=== PATIENT | female | born 1975 | race Caucasian/White ===

== ENCOUNTER 2025-07-08 11:46 | Emergency (ER) | payer OTHER, MEDICAID ==
[~2025-07-08] VITALS: Ht 165.1 cm; Wt 109.0 kg
--- NOTE | 2025-07-08 12:10 | ED.PDOC ---
HPI (NEURO) HPI Comments 49 y/o F, KARLI, presents to the ED for CC of dizziness. EMS reports, patient is coming from a store where caregiver called d/t patient c/o of sudden onset dizziness. Upon arrival to the ED, patient reports feeling as if the room is spinning. Patient denies nausea, vomiting, headache, or photophobia. Chief Complaint: Dizziness Time Seen by MD: 12:00 Reviewed Notes: Nurses Notes, Medications, Allergies Information Source: Patient, Emergency Med Personnel Mode of Arrival: EMS Severity: Moderate Headache Severity: None Timing: Minutes Duration: Since onset Prehospital treatment: None Onset: At rest Circumstances: Spontaneous Symptoms: Vertigo History of: None Modifying factors: Nothing Associated Signs and Symptoms: None Past Medical History PAST MEDICAL HISTORY: Denies Surgical History: Denies all surgeries [employer] History: Denies all [employer] Hx Family History Family History: Unknown Social History Smoker: Non-Smoker Alcohol: Denies ETOH Use Drugs: Denies Drug Use Lives In: Home Constitutional: denies: chills, diaphoresis, fatigue, fever, malaise, sweats, weakness, others EENTM: denies: blurred vision, double vision, ear bleeding, ear discharge, ear drainage, ear pain, ear ringing, eye pain, eye redness, hearing loss, mouth pain, mouth swelling, nasal discharge, nose bleeding, nose congestion, nose pain, photophobia, tearing, throat pain, throat swelling, voice changes, others Respiratory: denies: cough, hemoptysis, orthopnea, SOB at rest, shortness of breath, SOB with excertion, stridor, wheezing, others Cardiovascular: denies: chest pain, dizzy spells, diaphoresis, Dyspnea on exertion, edema, irregular heart beat, left arm pain, lightheadedness, palpitations, PND, syncope, others Gastrointestinal: denies: abdomen distended, abdominal pain, blood streaked bowels, constipated, diarrhea, dysphagia, difficulty swallowing, hematemesis, melena, nausea, poor appetite, poor fluid intake, rectal bleeding, rectal pain, vomiting, others Genitourinary: denies: abnormal vagina bleeding, burning, dyspareunia, dysuria, flank pain, frequency, hematuria, incontinence, pain, , vagina discharge, urgency, others Neurological: reports: dizziness; denies: fainting, headache, left sided numbness, left sided weakness, numbness, paresthesia, pre-existing deficit, right sided numbness, right sided weakness, seizure, speech problems, tingling, tremors, weakness, others Musculoskeletal: denies: back pain, gout, joint pain, joint swelling, muscle pain, muscle stiffness, neck pain, others Integumetry: denies: bruises, change in color, change in hair/nails, dryness, laceration, lesions, lumps, rash, wounds, others Allergic/Immunocompromised: denies: Difficulty Healing, Frequent Infections, Hives, Itching, others Hematologic/Lymphatic: denies: anemia, blood clots, easy bleeding, easy bruising, swollen glands, others Endocrine: denies: excessive hunger, excessive sweating, excessive thirst, excessive urination, flushing, intolerance to cold, intolerance to heat, unexplained weight gain, unexplained weight loss, others Psychiatric: denies: anxiety, bipolar disorder, depression, hopeless, panic disorder, schizophrenia, sleepless, suicidal, others All Other Systems: Reviewed and Negative Physical Exam General Appearance: No Apparent Distress, Normal HEENT: Normal ENT Inspection, Pharynx Normal Neck: Full Range of Motion, Non-Tender, Normal, Normal Inspection Respiratory: Chest Non-Tender, Lungs Clear, No Accessory Muscle Use, No Respiratory Distress, Normal Breath Sounds Cardiovascular: No Edema, No Murmur, No Gallop, Normal Peripheral Pulses, Regular Rate/Rhythm Breast Exam: Deferred Gastrointestinal: No Organomegaly, Non Tender, No Pulsatile Mass, Normal Bowel Sounds, Soft Genitalia: Deferred Pelvic: Deferred Rectal: Deferred Extremities: No calf tenderness, Normal capillary refill, Normal inspection, Normal range of motion, Non-tender, No pedal edema Musculoskeletal : Apperance: Normal Neurologic: Alert, 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 Was a procedure done?: No Differential Diagnosis (SZ) Seizure: N/A General Weakness: Vertigo: central, Vertigo: peripheral X-Ray, Labs, Meds, VS Vital Signs Date Time Temp Pulse Resp B/P (MAP) Pulse Ox O2 Delivery O2 Flow Rate FiO2 07/08/25 14:37 98.0 81 20 156/81 (106) 96 98.0 07/08/25 14:00 157/81 07/08/25 14:00 98.1 07/08/25 12:00 98.7 81 18 212/181 97 98.7 07/08/25 11:57 79 Lab Test 07/08/25 13:37 07/08/25 12:40 Range/Units Troponin I High Sensitivity 3 L 3 L </=34 ng/L White Blood Count 5.6 4.4-10.8 10^3/uL Red Blood Count 4.52 4.0-5.20 10^6/uL Hemoglobin 13.4 12.2-16.2 g/dL Hematocrit 40.0 36.0-46.0 % Mean Corpuscular Volume 88.5 80.0-100.0 fL Mean Corpuscular Hemoglobin 29.6 28.0-32.0 pg Mean Corpuscular Hemoglobin Concent 33.4 32.0-36.0 g/dL Red Cell Distribution Width 12.8 11.8-14.3 % Platelet Count 242 140-450 10^3/uL Mean Platelet Volume 7.0 6.9-10.8 fL Neutrophils (%) (Auto) 67.5 37.0-80.0 % Lymphocytes (%) (Auto) 21.6 10.0-50.0 % Monocytes (%) (Auto) 8.8 0.0-12.0 % Eosinophils (%) (Auto) 1.3 0.0-7.0 % Basophils (%) (Auto) 0.8 0.0-2.0 % Neutrophils # (Auto) 3.8 1.6-8.6 10 ^3/uL Lymphocytes # (Auto) 1.2 0.4-5.4 10 ^3/uL Monocytes # (Auto) 0.5 0-1.3 10 ^3/uL Eosinophils # (Auto) 0.1 0-0.8 10 ^3/uL Basophils # (Auto) 0 0-0.2 10 ^3/uL Nucleated Red Blood Cells 0.0 % Sodium Level 136 136-145 mmol/L Potassium Level 3.6 3.5-5.1 mmol/L Chloride Level 98 98-107 mmol/L Carbon Dioxide Level 32 H 20-31 mmol/L Anion Gap 6 5-15 Blood Urea Nitrogen 11 9-23 mg/dL Creatinine 0.76 0.550-1.02 mg/dL Glomerular Filtration Rate Calc 97 >90 mL/min BUN/Creatinine Ratio 14.5 10.0-20.0 Serum Glucose 95 74-106 mg/dL Calcium Level 9.4 8.7-10.4 mg/dL Current Medications Medications (Trade) Dose Ordered Sig/Oriana Route Start Time Stop Time Status Last Admin Sodium Chloride 1,000 ml @ 1,000 mls/hr Q1H ONCE IV 07/08/25 15:15 07/08/25 16:14 DC 07/08/25 15:23 [place] [address] Ph: [phone] DIAGNOSTIC IMAGING Diagnostic Imaging Report : [id number] Signed PATIENT: GUALBERTO GIBBONS ACCT: [id number] UNIT: [id number] : 1975 LOC: ER ROOM / BED: / AGE / SEX: 49 / F ADM STATUS: REG ER SERVICE 1204 ORDERING PHYSICIAN: CARLOS VIRK MD PROCEDURE(s): CXRP - CHEST PORTABLE REASON: dizziness ORDER NUMBER(s): [id number], ACCESSION NUMBER(s): [id number] CHEST RADIOGRAPH Indication: dizziness Technique: Single frontal view of the chest was obtained COMPARISON: None FINDINGS: Lines and Tubes: None Lungs: Increased interstitial prominence. This may represent pulmonary vascular congestion and/or viral pneumonia. Pleura: No effusion.No pneumothorax. Cardiomediastinal contours: Unremarkable Bones: Unremarkable Air-filled distention of colonic loops partially imaged in the upper abdomen. IMPRESSION: Increased interstitial prominence. This may represent pulmonary vascular congestion and/or viral pneumonia. ATED BY: ADEBAYO KNOWLES MD DICTATED DATE/TIME: 07/08/251246 SIGNED BY: ADEBAYO KNOWLES MD SIGNED DATE/TIME: 07/08/251246 CC: [address] [address] Ph: [phone] DIAGNOSTIC IMAGING Diagnostic Imaging Report : [id number] Signed PATIENT: GUALBERTO GIBBONS ACCT: [id number] UNIT: [id number] : 1975 LOC: ER ROOM / BED: / AGE / SEX: 49 / F ADM STATUS: REG ER SERVICE 1204 ORDERING PHYSICIAN: CARLOS VIRK MD PROCEDURE(s): HWOCT - HEAD WITHOUT CONTRAST REASON: dizziness ORDER NUMBER(s): [id number], ACCESSION NUMBER(s): [id number] CLINICAL HISTORY: dizziness TECHNIQUE: Helical scanning was performed of the head from the skull base to the vertex. Multiplanar reconstructions were performed. This exam was performed according to our departmental dose optimization program. Up-to-date CT equipment and radiation dose reduction techniques are utilized as appropriate. CTDI 60 DLP 1184 COMPARISON: None FINDINGS: There is no evidence for acute intracranial hemorrhage, acute ischemic changes, or extra-axial fluid collection. There is no hydrocephalus or midline shift. There is no effacement of the cerebral sulci and basal subarachnoid cisterns. The mckay-white matter differentiation is well maintained. There is a 2.7 cm left middle cranial fossa calcified extra-axial lesion. Scattered white matter hypoattenuation is most compatible with a mild burden of nonspecific chronic small vessel ischemic change. The imaged paranasal sinuses are clear. IMPRESSION: No acute intracranial abnormality seen. 2.7 cm left middle cranial fossa calcified extra-axial lesion, which could represent a meningioma. Nonemergent brain MRI with and without IV contrast recommended for further evaluation. ATED BY: QIAN BRENNAN MD DICTATED DATE/TIME: 07/08/251251 SIGNED BY: QIAN BRENNAN MD SIGNED DATE/TIME: 07/08/251251 CC: Time of 1ST Reevaluation: 12:30 Reevaluation 1ST: Unchanged Patient Education/Counseling: Diagnosis, Treatment Family Education/Counseling: No Family Present Departure 1 Departure Time of Disposition: 17:00 (Patient's workup was benign including normal labs, normal chest x-ray, normal CT scan normal EKG.) Impression: Primary Impression: Dizziness Disposition: 01 HOME / SELF CARE / HOMELESS Condition: Stable Additional Instructions: Your workup today was benign including normal labs CT scan and x-ray.. You can take Tylenol or Motrin as needed for pain. You should follow up with your regular doctor within 1 week. You should stay well rested and well hydrated. If your symptoms worsen or you have any other concerns please return to the emergency room. Discharged With: Self Critical Care Note Critical Care Time?: No Stability Stability form required: No Heart Score Heart Score: Heart Score Response (Comments) Value History N/A 0 EKG N/A 0 Age N/A 0 Risk Factors N/A 0 Troponin N/A 0 Total 0 I personally scribed for CARLOS VIRK MD ([email or web address]) on 07/08/25 at 12:10. E lectronically submitted by Rimma Enciso ([email or web address]). I personally scribed for CARLOS VIRK MD ([email or web address]) on 07/08/25 at 13:11. Yakelin ctronically submitted by Rimma Enciso ([email or web address]). I personally scribed for CARLOS VIRK MD ([email or web address]) on 07/08/25 at 16:29. Elect ronically submitted by Rimma Enciso ([email or web address]). CARLOS VIRK MD Jul 08, 2025 12:10
--- NOTE | 2025-07-08 12:49 | DVH ---
CHEST RADIOGRAPH Indication: dizziness Technique: Single frontal view of the chest was obtained COMPARISON: None FINDINGS: Lines and Tubes: None Lungs: Increased interstitial prominence. This may represent pulmonary vascular congestion and/or viral pneumonia. Pleura: No effusion.No pneumothorax. Cardiomediastinal contours: Unremarkable Bones: Unremarkable Air-filled distention of colonic loops partially imaged in the upper abdomen. IMPRESSION: Increased interstitial prominence. This may represent pulmonary vascular congestion and/or viral pneumonia.
--- NOTE | 2025-07-08 12:55 | DVH ---
CLINICAL HISTORY: dizziness TECHNIQUE: Helical scanning was performed of the head from the skull base to the vertex. Multiplanar reconstructions were performed. This exam was performed according to our departmental dose optimization program. Up-to-date CT equipment and radiation dose reduction techniques are utilized as appropriate. CTDI 60 DLP 1184 COMPARISON: None FINDINGS: There is no evidence for acute intracranial hemorrhage, acute ischemic changes, or extra-axial fluid collection. There is no hydrocephalus or midline shift. There is no effacement of the cerebral sulci and basal subarachnoid cisterns. The mckay-white matter differentiation is well maintained. There is a 2.7 cm left middle cranial fossa calcified extra-axial lesion. Scattered white matter hypoattenuation is most compatible with a mild burden of nonspecific chronic small vessel ischemic change. The imaged paranasal sinuses are clear. IMPRESSION: No acute intracranial abnormality seen. 2.7 cm left middle cranial fossa calcified extra-axial lesion, which could represent a meningioma. Nonemergent brain MRI with and without IV contrast recommended for further evaluation.
[2025-07-08 12:56] LABS: Hematocrit 40.0 % (36.0-46.0); Hemoglobin 13.4 g/dL (12.2-16.2); Mean Corpuscular Hemoglobin 29.6 pg (28.0-32.0); Mean Corpuscular Volume 88.5 fL (80.0-100.0); Nucleated Red Blood Cells % 0.0 %
[2025-07-08 13:04] LABS: Potassium 3.6 mmol/L (3.5-5.1); Sodium 136 mmol/L (136-145)
[2025-07-08 13:05] LABS: Anion Gap 6 (5-15); Calcium 9.4 mg/dL (8.7-10.4)
[2025-07-08 13:08] LABS: Carbon Dioxide 32 mmol/L (20-31); Chloride 98 mmol/L (98-107)
[2025-07-08 13:10] LABS: BUN/Creatinine Ratio 14.5 (10.0-20.0); Blood Urea Nitrogen 11 mg/dL (9-23); Glucose 95 mg/dL (74-106)
[2025-07-08] MEDS: ACETAMINOPHEN 325 MG TAB PO ONE (14:00)
[2025-07-08] MEDS: hydrALAZINE HCL 20 MG/ML VL IV ONE (14:00)
[2025-07-08 14:37] VITALS: BP 156/81; PULSE 81; RESP 20; TEMP 98
[2025-07-08] MEDS: SODIUM CHLORIDE 0.9% 1,000 ML IV ONE (15:23)
--- NOTE | 2025-07-08 15:53 | ECG ---
[facility] Test Date: 2025-07-08 Test Time: 11:53:44 Pat Name: GUALBERTO GIBBONS Department: ED Room: Gender: F Manager Sales Support: JAYJAY : 1975 Requested By: CARLOS VIRK Order Number: [id number] Reading MD: Lior Cohen Measurements Intervals Seibert Rate: 79 P: 43 NE: 162 QRS: 48 QRSD: 86 T: -14 QT: 439 QTc: 504 Interpretive Statements Sinus rhythm Borderline T abnormalities, diffuse leads Borderline prolonged QT interval Electronically Signed On 07-08-2025 20:12:39 PST by Lior Cohen Please click the below link to view image of tracing.
[2025-07-08 17:24] LABS: Urine Protein, UAD TRACE (Negative)
[2025-07-08 17:51] VITALS: O2SAT 98
== END 2025-07-08 17:48 | disposition home or self-care (01) ==
LOC: ER 11:46 → EDBD 11:46 → ER 17:48
DX: R42 Dizziness and giddiness (principal); Z79.899 Other long term (current) drug therapy
CPT/HCPCS: 36415; 70450; 71045; 80048; 81001; 84484; 85025; 93005; 96360; 99285; J7030